=== PATIENT | male | born 1980 | race Caucasian/White ===

== ENCOUNTER 2024-03-31 14:52 | Emergency (ER) | payer SELFPAY ==
[2024-03-31] MEDS: LORazepam 2 MG/ML SDV IVPUSH ONE (15:17)
[2024-03-31] MEDS: Sodium Chloride 0.9% 1,000 ML IV ONE (15:17)
[2024-03-31] MEDS: Ondansetron 4 MG/2 ML SDV IVPUSH ONE (15:17)
[2024-03-31 15:36] LABS: BASOPHILS ABSOLUTE AUTO 0.07 K/uL (0.00-0.20); EOSINOPHILS ABSOLUTE AUTO 0.02 K/uL (0.00-0.45); EOSINOPHILS PERCENT AUTO 0.3 % (0.0-6.0); HEMATOCRIT 33.3 % (42.0-52.0); HEMOGLOBIN 10.7 g/dL (14.0-18.0); IMMATURE GRAN ABSOLUTE AUTO 0.02 K/uL (0.00-0.05); IMMATURE GRAN PERCENT AUTO 0.3 % (0.0-0.4); LYMPHOCYTES ABSOLUTE AUTO 1.74 K/uL (1.00-4.80); LYMPHOCYTES PERCENT AUTO 25.8 % (24.0-44.0); MEAN CORPUSCULAR HEMOGLOBIN 25.2 pg (28.0-32.0); MEAN CORPUSCULAR HGB CONC 32.1 g/dL (32.0-36.0); MEAN CORPUSCULAR VOLUME 78.4 fL (83.0-99.0); MEAN PLATELET VOLUME 8.6 fL (9.4-12.4); MONOCYTES ABSOLUTE AUTO 0.73 K/uL (0.00-0.80); MONOCYTES PERCENT AUTO 10.8 % (0.0-8.0); NEUTROPHILS ABSOLUTE AUTO 4.17 K/uL (1.80-7.70); NEUTROPHILS PERCENT AUTO 61.8 % (41.0-71.0); PLATELET COUNT,PLT 292 K/uL (150-400); RED BLOOD CELL COUNT 4.25 M/uL (4.52-5.90); WHITE BLOOD CELL COUNT,WBC 6.75 K/uL (3.9-11.3)
[2024-03-31 16:05] LABS: A/G RATIO 0.7 (0.9-1.6); ALBUMIN 3.2 g/dL (3.4-5.0); BILIRUBIN TOTAL 0.6 mg/dL (0.2-1.0); CALCIUM 8.4 mg/dL (8.5-10.1); CARBON DIOXIDE,CO2 29.9 mmol/L (21.0-32.0); CREATININE 0.8 mg/dL (0.8-1.3); EST CRCL DRUG DOSING (CG) 134.55 mL/min; POTASSIUM,K 2.7 mmol/L (3.5-5.1); PROTEIN TOTAL,TP 7.6 g/dL (6.4-8.2)
[2024-03-31] MEDS: Potassium Chloride 20 MEQ Tab.ER PO ONE (16:56)
== END 2024-03-31 17:07 ==
LOC: MW.ED 14:52
DX: Z02.89 Encounter for other administrative examinations (principal); E87.6 Hypokalemia; F10.129 Alcohol abuse with intoxication, unspecified; D64.9 Anemia, unspecified; Z79.899 Other long term (current) drug therapy; Z75.8 Other problems related to medical facilities and other health care
CPT/HCPCS: 36415; 80053; 80307; 83690; 85025; 93005; 96361; 96374; 96375; 99284; A9270; J2060; J2405; J7030; 93010

== ENCOUNTER 2024-04-01 12:00 | Emergency (ER) | payer SELFPAY ==
[2024-04-01 13:24] LABS: BASOPHILS ABSOLUTE AUTO 0.08 K/uL (0.00-0.20); BASOPHILS PERCENT AUTO 1.2 % (0.0-1.0); EOSINOPHILS ABSOLUTE AUTO 0.02 K/uL (0.00-0.45); EOSINOPHILS PERCENT AUTO 0.3 % (0.0-6.0); HEMATOCRIT 30.4 % (42.0-52.0); HEMOGLOBIN 9.6 g/dL (14.0-18.0); IMMATURE GRAN ABSOLUTE AUTO 0.03 K/uL (0.00-0.05); IMMATURE GRAN PERCENT AUTO 0.4 % (0.0-0.4); LYMPHOCYTES ABSOLUTE AUTO 0.83 K/uL (1.00-4.80); LYMPHOCYTES PERCENT AUTO 12.1 % (24.0-44.0); MEAN CORPUSCULAR HGB CONC 31.6 g/dL (32.0-36.0); MEAN CORPUSCULAR VOLUME 79.2 fL (83.0-99.0); MEAN PLATELET VOLUME 8.7 fL (9.4-12.4); MONOCYTES ABSOLUTE AUTO 0.83 K/uL (0.00-0.80); MONOCYTES PERCENT AUTO 12.1 % (0.0-8.0); NEUTROPHILS ABSOLUTE AUTO 5.05 K/uL (1.80-7.70); NEUTROPHILS PERCENT AUTO 73.9 % (41.0-71.0); PLATELET COUNT,PLT 229 K/uL (150-400); RED BLOOD CELL COUNT 3.84 M/uL (4.52-5.90); WHITE BLOOD CELL COUNT,WBC 6.84 K/uL (3.9-11.3)
[2024-04-01 13:52] LABS: A/G RATIO 0.8 (0.9-1.6); ALBUMIN 3.2 g/dL (3.4-5.0); BILIRUBIN TOTAL 1.7 mg/dL (0.2-1.0); CALCIUM 8.8 mg/dL (8.5-10.1); CARBON DIOXIDE,CO2 32.1 mmol/L (21.0-32.0); CREATININE 0.9 mg/dL (0.8-1.3); EST CRCL DRUG DOSING (CG) 123.05 mL/min; POTASSIUM,K 2.8 mmol/L (3.5-5.1); PROTEIN TOTAL,TP 7.3 g/dL (6.4-8.2)
[2024-04-01] MEDS: Diazepam 2 MG Tab PO ONE (13:58)
[2024-04-01 14:42] LABS: BASOPHILS ABSOLUTE AUTO 0.07 K/uL (0.00-0.20); EOSINOPHILS ABSOLUTE AUTO 0.01 K/uL (0.00-0.45); EOSINOPHILS PERCENT AUTO 0.1 % (0.0-6.0); HEMATOCRIT 30.5 % (42.0-52.0); HEMOGLOBIN 9.6 g/dL (14.0-18.0); IMMATURE GRAN ABSOLUTE AUTO 0.02 K/uL (0.00-0.05); IMMATURE GRAN PERCENT AUTO 0.3 % (0.0-0.4); LYMPHOCYTES ABSOLUTE AUTO 0.86 K/uL (1.00-4.80); LYMPHOCYTES PERCENT AUTO 12.5 % (24.0-44.0); MEAN CORPUSCULAR HEMOGLOBIN 24.9 pg (28.0-32.0); MEAN CORPUSCULAR HGB CONC 31.5 g/dL (32.0-36.0); MEAN CORPUSCULAR VOLUME 79.2 fL (83.0-99.0); MEAN PLATELET VOLUME 8.5 fL (9.4-12.4); MONOCYTES ABSOLUTE AUTO 0.95 K/uL (0.00-0.80); MONOCYTES PERCENT AUTO 13.8 % (0.0-8.0); NEUTROPHILS ABSOLUTE AUTO 4.99 K/uL (1.80-7.70); NEUTROPHILS PERCENT AUTO 72.3 % (41.0-71.0); PLATELET COUNT,PLT 219 K/uL (150-400); RED BLOOD CELL COUNT 3.85 M/uL (4.52-5.90)
== END 2024-04-01 15:36 ==
LOC: MW.ED 12:00
DX: D64.9 Anemia, unspecified (principal); I10 Essential (primary) hypertension; E87.6 Hypokalemia; Z75.8 Other problems related to medical facilities and other health care; F17.210 Nicotine dependence, cigarettes, uncomplicated; Z79.899 Other long term (current) drug therapy
CPT/HCPCS: 36415; 71046; 80053; 85025; 99285; A9270; 99283

== ENCOUNTER 2024-04-03 16:05 | Emergency (ER) | payer SELFPAY ==
[2024-04-03 16:41] LABS: BASOPHILS ABSOLUTE AUTO 0.04 K/uL (0.00-0.20); BASOPHILS PERCENT AUTO 0.5 % (0.0-1.0); EOSINOPHILS PERCENT AUTO 1.1 % (0.0-6.0); HEMATOCRIT 33.9 % (42.0-52.0); HEMOGLOBIN 10.2 g/dL (14.0-18.0); IMMATURE GRAN ABSOLUTE AUTO 0.07 K/uL (0.00-0.05); IMMATURE GRAN PERCENT AUTO 0.8 % (0.0-0.4); LYMPHOCYTES ABSOLUTE AUTO 1.28 K/uL (1.00-4.80); LYMPHOCYTES PERCENT AUTO 14.5 % (24.0-44.0); MEAN CORPUSCULAR HEMOGLOBIN 24.6 pg (28.0-32.0); MEAN CORPUSCULAR HGB CONC 30.1 g/dL (32.0-36.0); MEAN CORPUSCULAR VOLUME 81.7 fL (83.0-99.0); MONOCYTES PERCENT AUTO 7.9 % (0.0-8.0); NEUTROPHILS ABSOLUTE AUTO 6.65 K/uL (1.80-7.70); NEUTROPHILS PERCENT AUTO 75.2 % (41.0-71.0); PLATELET COUNT,PLT 313 K/uL (150-400); RED BLOOD CELL COUNT 4.15 M/uL (4.52-5.90); WHITE BLOOD CELL COUNT,WBC 8.84 K/uL (3.9-11.3)
[2024-04-03] MEDS: Pantoprazole 80 MG in Sodium Chloride 0.9% 10 ML IVPUSH STA (16:59)
[2024-04-03] MEDS: Aspirin 81 MG Tab.Chew PO STA (16:59)
[2024-04-03 17:09] LABS: A/G RATIO 0.8 (0.9-1.6); ALBUMIN 3.2 g/dL (3.4-5.0); BILIRUBIN TOTAL 0.7 mg/dL (0.2-1.0); CALCIUM 8.8 mg/dL (8.5-10.1); CARBON DIOXIDE,CO2 28.3 mmol/L (21.0-32.0); CREATININE 1.4 mg/dL (0.8-1.3); EST CRCL DRUG DOSING (CG) 79.1 mL/min; PROTEIN TOTAL,TP 7.2 g/dL (6.4-8.2)
[2024-04-03 17:14] LABS: MAGNESIUM 1.9 mg/dL (1.8-2.4)
[2024-04-03 17:24] LABS: POTASSIUM,K 3.1 mmol/L (3.5-5.1)
[2024-04-03] MEDS: Potassium Chloride 20 MEQ Tab.ER PO STA (18:11)
== END 2024-04-03 18:30 ==
LOC: MW.ED 16:05
DX: Z02.89 Encounter for other administrative examinations (principal); R07.9 Chest pain, unspecified; E87.6 Hypokalemia; Z75.8 Other problems related to medical facilities and other health care; I10 Essential (primary) hypertension; Z79.899 Other long term (current) drug therapy
CPT/HCPCS: 36415; 71045; 80053; 83690; 83735; 84484; 85025; 93005; 96374; 99285; A9270; J2470; J3490; 93010; 99283

== ENCOUNTER 2024-04-04 14:36 | Observation (INO) | payer SELFPAY ==
[2024-04-04 14:57] LABS: BASOPHILS ABSOLUTE AUTO 0.04 K/uL (0.00-0.20); BASOPHILS PERCENT AUTO 0.5 % (0.0-1.0); EOSINOPHILS ABSOLUTE AUTO 0.08 K/uL (0.00-0.45); HEMATOCRIT 30.3 % (42.0-52.0); HEMOGLOBIN 9.3 g/dL (14.0-18.0); IMMATURE GRAN ABSOLUTE AUTO 0.04 K/uL (0.00-0.05); IMMATURE GRAN PERCENT AUTO 0.5 % (0.0-0.4); LYMPHOCYTES PERCENT AUTO 14.2 % (24.0-44.0); MEAN CORPUSCULAR HEMOGLOBIN 25.3 pg (28.0-32.0); MEAN CORPUSCULAR HGB CONC 30.7 g/dL (32.0-36.0); MEAN CORPUSCULAR VOLUME 82.3 fL (83.0-99.0); MEAN PLATELET VOLUME 8.9 fL (9.4-12.4); MONOCYTES PERCENT AUTO 9.1 % (0.0-8.0); NEUTROPHILS ABSOLUTE AUTO 5.76 K/uL (1.80-7.70); NEUTROPHILS PERCENT AUTO 74.7 % (41.0-71.0); PLATELET COUNT,PLT 294 K/uL (150-400); RED BLOOD CELL COUNT 3.68 M/uL (4.52-5.90); WHITE BLOOD CELL COUNT,WBC 7.72 K/uL (3.9-11.3)
[2024-04-04 15:23] LABS: A/G RATIO 0.8 (0.9-1.6); ALANINE AMINOTRANSFERASE,ALT 114 IU/L (14-63); ALBUMIN 2.8 g/dL (3.4-5.0); ALKALINE PHOSPHATASE 86 U/L (46-116); ASPARTATE AMNIOTRANSFERASE,AST 62 IU/L (15-37); BILIRUBIN TOTAL 0.6 mg/dL (0.2-1.0); BLOOD UREA NITROGEN,BUN 20 mg/dL (7.0-18.0); CALCIUM 8.4 mg/dL (8.5-10.1); CARBON DIOXIDE,CO2 28.5 mmol/L (21.0-32.0); CHLORIDE,CL 100 mmol/L (98-107); CREATININE 1.9 mg/dL (0.8-1.3); GLUCOSE RANDOM 126 mg/dL (74-106); LACTIC ACID 2.3 mmol/L (0.4-2.0); POTASSIUM,K 2.9 mmol/L (3.5-5.1); PROTEIN TOTAL,TP 6.4 g/dL (6.4-8.2); SODIUM,NA 137 mmol/L (136-148)
[2024-04-04 15:27] LABS: ESTIMATED GFR 44 mL/min (>60)
[2024-04-04] MEDS: Sodium Chloride 0.9% 1,000 ML IV ONE (16:00)
[2024-04-04] MEDS: Sodium Chloride 0.9% 2.5 ML Syringe FLUSH PRN (16:04)
[2024-04-04] MEDS: Sodium Chloride 0.9% 10 ML Syringe FLUSH PRN (16:04)
[2024-04-04] MEDS: Sodium Chloride 0.9% 1,000 ML IV STA (16:39)
[2024-04-04] MEDS ORDERED: Polyethylene Glycol 3350 Powder 17 GM Packet PO PRN (18:59)
[2024-04-04] MEDS ORDERED: Ondansetron 4 MG Tab.DIS PO PRN (18:59)
[2024-04-04] MEDS ORDERED: Docusate Sodium 100 MG Cap PO PRN (18:59)
[2024-04-04] MEDS ORDERED: Acetaminophen 325 MG Tab PO PRN (18:59)
[2024-04-04] MEDS ORDERED: chlordiazePOXIDE 25 MG Cap PO SCH ×3 (19:15→21:00)
[2024-04-04] MEDS ORDERED: Pantoprazole 40 MG Tab.CR PO SCH (19:15)
[2024-04-04] MEDS: Pantoprazole 40 MG Tab.CR PO ONE (20:16)
[2024-04-04] MEDS: Potassium Chloride 20 MEQ Tab.ER PO ONE (20:22)
[2024-04-04] MEDS: Enoxaparin 40 MG/0.4 ML Syringe SUBCUT SCH (20:23)
[2024-04-04] MEDS: Sodium Chloride 0.9% 1,000 ML IV SCH (20:24)
[2024-04-04] MEDS: Thiamine 100 MG Tab PO SCH (21:21)
[2024-04-04] MEDS: Melatonin 3 MG Tab PO PRN (21:21)
[2024-04-04] MEDS: LORazepam 1 MG Tab PO PRN (21:21)
[2024-04-04] MEDS: Folic Acid 1 MG Tab PO SCH (21:21)
[2024-04-04 21:29] LABS: CALCIUM 7.8 mg/dL (8.5-10.1); CARBON DIOXIDE,CO2 28.2 mmol/L (21.0-32.0); CREATININE 1.5 mg/dL (0.8-1.3); EST CRCL DRUG DOSING (CG) 73.83 mL/min
[2024-04-05] MEDS: Potassium Chloride 20 MEQ Tab.ER PO ONE (00:35)
[2024-04-05 06:48] LABS: BASOPHILS ABSOLUTE AUTO 0.03 K/uL (0.00-0.20); BASOPHILS PERCENT AUTO 0.5 % (0.0-1.0); EOSINOPHILS ABSOLUTE AUTO 0.11 K/uL (0.00-0.45); EOSINOPHILS PERCENT AUTO 1.8 % (0.0-6.0); HEMATOCRIT 30.1 % (42.0-52.0); HEMOGLOBIN 8.9 g/dL (14.0-18.0); IMMATURE GRAN ABSOLUTE AUTO 0.03 K/uL (0.00-0.05); IMMATURE GRAN PERCENT AUTO 0.5 % (0.0-0.4); LYMPHOCYTES ABSOLUTE AUTO 1.75 K/uL (1.00-4.80); LYMPHOCYTES PERCENT AUTO 29.4 % (24.0-44.0); MEAN CORPUSCULAR HEMOGLOBIN 25.1 pg (28.0-32.0); MEAN CORPUSCULAR HGB CONC 29.6 g/dL (32.0-36.0); MEAN PLATELET VOLUME 8.7 fL (9.4-12.4); MONOCYTES ABSOLUTE AUTO 0.67 K/uL (0.00-0.80); MONOCYTES PERCENT AUTO 11.2 % (0.0-8.0); NEUTROPHILS ABSOLUTE AUTO 3.37 K/uL (1.80-7.70); NEUTROPHILS PERCENT AUTO 56.6 % (41.0-71.0); PLATELET COUNT,PLT 265 K/uL (150-400); RED BLOOD CELL COUNT 3.54 M/uL (4.52-5.90); WHITE BLOOD CELL COUNT,WBC 5.96 K/uL (3.9-11.3)
[2024-04-05] MEDS: Pantoprazole 40 MG Tab.CR PO SCH (06:48)
[2024-04-05 07:13] LABS: A/G RATIO 0.8 (0.9-1.6); ALBUMIN 2.8 g/dL (3.4-5.0); BILIRUBIN TOTAL 0.7 mg/dL (0.2-1.0); CALCIUM 8.6 mg/dL (8.5-10.1); CARBON DIOXIDE,CO2 28.6 mmol/L (21.0-32.0); CREATININE 1.2 mg/dL (0.8-1.3); EST CRCL DRUG DOSING (CG) 92.28 mL/min; MAGNESIUM 1.8 mg/dL (1.8-2.4); POTASSIUM,K 3.5 mmol/L (3.5-5.1); PROTEIN TOTAL,TP 6.3 g/dL (6.4-8.2)
[2024-04-05] MEDS: OLANZapine 5 MG Tab PO SCH (10:03)
[2024-04-05] MEDS ORDERED: chlordiazePOXIDE 25 MG Cap PO SCH (21:00)
[2024-04-06 06:41] LABS: A/G RATIO 0.7 (0.9-1.6); ALBUMIN 2.5 g/dL (3.4-5.0); BILIRUBIN TOTAL 0.3 mg/dL (0.2-1.0); CALCIUM 8.8 mg/dL (8.5-10.1); CARBON DIOXIDE,CO2 27.5 mmol/L (21.0-32.0); CREATININE 0.9 mg/dL (0.8-1.3); EST CRCL DRUG DOSING (CG) 123.05 mL/min; POTASSIUM,K 3.6 mmol/L (3.5-5.1); PROTEIN TOTAL,TP 5.9 g/dL (6.4-8.2)
[2024-04-06] MEDS ORDERED: Hydrochlorothiazide 25 MG Tab PO SCH (09:45)
[2024-04-06] MEDS ORDERED: Lisinopril 10 MG Tab PO SCH (10:00)
== END 2024-04-06 13:30 | disposition home or self-care (01) ==
LOC: MW.ED 14:36 → MW.MS 18:39
PROVIDERS: ADMIT Family Medicine; ATTEND Family Medicine
DX: I95.9 Hypotension, unspecified (principal); N17.9 Acute kidney failure, unspecified; I11.9 Hypertensive heart disease without heart failure; Z79.899 Other long term (current) drug therapy
CPT/HCPCS: 36415; 71045; 80048; 80053; 83540; 83605; 83735; 83880; 84484; 85025; 87040; 93005; 96360; 96361; 96372; 99285; A9270; G0378; J1650; J3490; J7030; 93010; 99222; 99232; 99239; 99283

== ENCOUNTER 2024-04-10 16:23 | Emergency (ER) | payer SELFPAY ==
[2024-04-10 17:40] LABS: BASOPHILS ABSOLUTE AUTO 0.07 K/uL (0.00-0.20); BASOPHILS PERCENT AUTO 1.7 % (0.0-1.0); EOSINOPHILS ABSOLUTE AUTO 0.02 K/uL (0.00-0.45); EOSINOPHILS PERCENT AUTO 0.5 % (0.0-6.0); HEMATOCRIT 33.4 % (42.0-52.0); HEMOGLOBIN 10.2 g/dL (14.0-18.0); IMMATURE GRAN ABSOLUTE AUTO 0.01 K/uL (0.00-0.05); IMMATURE GRAN PERCENT AUTO 0.2 % (0.0-0.4); LYMPHOCYTES ABSOLUTE AUTO 1.21 K/uL (1.00-4.80); LYMPHOCYTES PERCENT AUTO 29.4 % (24.0-44.0); MEAN CORPUSCULAR HEMOGLOBIN 24.9 pg (28.0-32.0); MEAN CORPUSCULAR HGB CONC 30.5 g/dL (32.0-36.0); MEAN CORPUSCULAR VOLUME 81.5 fL (83.0-99.0); MEAN PLATELET VOLUME 8.4 fL (9.4-12.4); MONOCYTES ABSOLUTE AUTO 0.46 K/uL (0.00-0.80); MONOCYTES PERCENT AUTO 11.2 % (0.0-8.0); NEUTROPHILS ABSOLUTE AUTO 2.35 K/uL (1.80-7.70); PLATELET COUNT,PLT 427 K/uL (150-400); WHITE BLOOD CELL COUNT,WBC 4.12 K/uL (3.9-11.3)
[2024-04-10 18:10] LABS: A/G RATIO 0.7 (0.9-1.6); ALBUMIN 3.2 g/dL (3.4-5.0); BILIRUBIN TOTAL 0.4 mg/dL (0.2-1.0); CARBON DIOXIDE,CO2 23.4 mmol/L (21.0-32.0); EST CRCL DRUG DOSING (CG) 110.74 mL/min; PROTEIN TOTAL,TP 7.5 g/dL (6.4-8.2)
[2024-04-10] MEDS: cloNIDine 0.1 MG Tab PO ONE (21:54)
== END 2024-04-10 22:00 | disposition home or self-care (01) ==
LOC: MW.ED 16:23
DX: F10.920 Alcohol use, unspecified with intoxication, uncomplicated (principal); I10 Essential (primary) hypertension; Z75.8 Other problems related to medical facilities and other health care; Z79.899 Other long term (current) drug therapy; Y90.6 Blood alcohol level of 120-199 mg/100 ml
CPT/HCPCS: 36415; 80053; 80307; 85025; 99284